=== PATIENT | female | born 1965 ===

== ENCOUNTER 2023-08-04 13:30 | Outpatient (OUT) | payer BC, SELFPAY ==
--- NOTE | 2023-08-04 | XR_ITS ---
[address] [address] Patient Name: PRAMOD BUCKNER MRN: [id number] date: 1965 Sex: F Assigned Patient Location: [facility] Current Patient Location: Accession/Order Number: [id number] Exam Date: 08/04/2023 13:53 Report Date: 08/05/2023 12:05 At the request of: RUI BOLAÑOS Procedure: XR ankle LT min 3V STUDY: XR foot VINCENT min 3V, XR ankle LT min 3V, [id number], [id number] HISTORY: BILATERAL FOOT PAIN COMPARISON: None FINDINGS: Right foot: No acute fracture, dislocation, or suspicious osseous lesion. Severe osteoarthritis of the first metatarsophalangeal joint as well as the second through fifth tarsometatarsal joints. Mild osteoarthritis at the first tarsometatarsal joint. Mild osteoarthritis of the subtalar joint. Medium-sized plantar calcaneal spur. Left foot and ankle: No acute fracture, dislocation, or suspicious osseous lesion. Severe osteoarthritis at the first metatarsophalangeal joint and mild osteoarthritis of the second through fourth tarsometatarsal joints. There is a medium-sized plantar calcaneal spur. Pes planus. No lucent lesion of the talar dome. A single bone screw is present in the talus. IMPRESSION: 1. Bilateral osteoarthritis. 2. Left-sided pes planus. Electronically authenticated by: CASANDRA PARIS Date: 08/05/2023 12:05
--- NOTE | 2023-08-04 | XR_ITS ---
[address] [address] Patient Name: PRAMOD BUCKNER MRN: [id number] date: 1965 Sex: F Assigned Patient Location: [facility] Current Patient Location: Accession/Order Number: [id number] Exam Date: 08/04/2023 13:42 Report Date: 08/05/2023 12:05 At the request of: RUI BOLAÑOS Procedure: XR foot VINCENT min 3V STUDY: XR foot VINCENT min 3V, XR ankle LT min 3V, [id number], [id number] HISTORY: BILATERAL FOOT PAIN COMPARISON: None FINDINGS: Right foot: No acute fracture, dislocation, or suspicious osseous lesion. Severe osteoarthritis of the first metatarsophalangeal joint as well as the second through fifth tarsometatarsal joints. Mild osteoarthritis at the first tarsometatarsal joint. Mild osteoarthritis of the subtalar joint. Medium-sized plantar calcaneal spur. Left foot and ankle: No acute fracture, dislocation, or suspicious osseous lesion. Severe osteoarthritis at the first metatarsophalangeal joint and mild osteoarthritis of the second through fourth tarsometatarsal joints. There is a medium-sized plantar calcaneal spur. Pes planus. No lucent lesion of the talar dome. A single bone screw is present in the talus. IMPRESSION: 1. Bilateral osteoarthritis. 2. Left-sided pes planus. Electronically authenticated by: CASANDRA PARIS Date: 08/05/2023 12:05
--- OUTSIDE RECORDS SUMMARY | 2023-09-14 15:20 | XMS_ITS | CCD ---
Author Name Unknown Address [address] [place] [id number] Organization [facility] Results Test Name Value Interpretation Reference Range Facil ity Interdisciplinary Note - Manas singon 08-05-2023 Interdisciplinary Note - Nursing Patient: PRAMOD BUCKNER Age: 58 years Sex: Female : 1965 Associated Diagnoses: None Author: Maren Burleson Dr. office called for implant information that was placed in patients foot by Dr. Covarrubias. Information was given to Angie Zuniga, from Dr. Biggs Office, Implant was, Implant subtalar, 9MMF from [employer].[id number](f).15:50 pm [facility] Provider Letteron 10-07-2022 Provider Letter (Inserted Image. Chasity ble to display) October 07, 2022 PRAMOD BUCKNER [address] [place] [phone] PRAMOD BUCKNER 1965 To Whom It May Concern, Please excuse the patient above from Jury Duty. 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 Respectfully, Ngoc Jeronimo [facility] Family Medicine [place] [address] [place] [id number] [facility] Summary Purpose Family History No Family History Records Found Advance Directives No Advanced Directives Records Found Additional Source Comments INFORMATION SOURCE (unrecogn ized section and content) DATE CREATED AUTHOR 08/07/2023 [facility] FOR RECORDS PERTAINING TO PATIENTS WHO ARE OR HAVE BEEN ENROLLED IN A CHEMICAL DEPENDENCY/SUBSTANCEABUSE PROGRAM, SOME INFORMATION MAY BE OMITTED. This clinical summary was aggregated from multiple sources. Caution should be exercised in using it in the provision of clinical care. This summary normalizes information from multiple sources, and as a consequence, information in this document may materially change the coding, format and clinical context of patient data. In addition, data may be omitted in some cases. CLINICAL DECISIONS SHOULD BE BASED ON THE PRIMARY CLINICAL RECORDS. [facility] [employer] [facility]. provides no warranty or guarantee of the accuracy or completeness of information in this document.
== END 2023-08-04 13:31 | disposition home or self-care (01) ==
PROVIDERS: Visit Provider Podiatrist Foot & Ankle Surgery
DX: M79.671 Pain in right foot (principal); M79.672 Pain in left foot; M25.572 Pain in left ankle and joints of left foot; M19.072 Primary osteoarthritis, left ankle and foot; M19.071 Primary osteoarthritis, right ankle and foot; M21.42 Flat foot [pes planus] (acquired), left foot; M77.31 Calcaneal spur, right foot
CPT/HCPCS: 73610; 73630

== ENCOUNTER 2023-08-16 07:40 | Outpatient (OUT) | payer BC, SELFPAY ==
--- NOTE | 2023-08-16 07:44 | MR_ITS ---
The [address] [address] Patient Name: PRAMOD BUCKNER MRN: [id number] date: 1965 Sex: F Assigned Patient Location: MRI Current Patient Location: MRI Accession/Order Number: [id number] Exam Date: 08/16/2023 08:05 Report Date: 08/16/2023 09:21 At the request of: RUI BOLAÑOS Procedure: MR ankle LT wo con MR ankle LT wo con, 08/16/2023 8:05 AM EST INDICATION: Tendon Tear, Posterior Tibial Tendon Dysfunction COMPARISON: Prior x-ray of the left ankle dated 08/04/2023 TECHNIQUE: Multiplanar and multisequential MR images of the left ankle were obtained without contrast . FINDINGS: There is a screw along middle talocalcaneus joint causing magnetic susceptibility artifact that decreases the sensitivity of this study. Muscles and tendons: T2 prolongation within the posterior tibialis tendon adjacent to the navicular bone suggesting of focal tendinosis. No high-grade tear is noted. Circumferential fluid along the flexor digitorum longus suggesting of tenosynovitis. The remainder of flexor and extensor tendons and muscles are unremarkable. No abnormality of the peroneal tendons is noted. A tiny longitudinal tear within the distal Achilles tendon is noted, likely chronic. Bone: There is cystic formation involving the calcaneus neck with mild bone marrow edema. There is adjacent to possible venous lomax. No osseus other lesion is noted. Sinus Tarsi: No abnormality of sinus Tarsi is noted. Plantar fascia: The plantar fascia is unremarkable. Ligaments: The deep and superficial portions of deltoid are unremarkable. The lateral ligaments are unremarkable. The visualized portion of Lisfranc ligament is unremarkable. There is normal intra-articular joint effusion. No soft tissue abnormality is noted. MR/MR ankle LT wo con IMPRESSION: Focal tendinosis within the left posterior tibialis tendon adjacent to the navicular bone. No high-grade tear. Tenosynovitis of the left flexor digitorum longus. Small longitudinal tear within the distal Achilles tendon likely chronic. Electronically authenticated by: GARTH MORRIS Date: 08/16/2023 09:21
== END 2023-08-16 07:41 | disposition home or self-care (01) ==
LOC: MRI 07:40
PROVIDERS: PCP Family Medicine; Visit Provider Podiatrist Foot & Ankle Surgery
DX: M76.822 Posterior tibial tendinitis, left leg (principal)
CPT/HCPCS: 73721

== ENCOUNTER 2024-02-29 09:38 | Outpatient (OUT) | payer BC, SELFPAY ==
--- NOTE | 2024-02-29 | XR_ITS ---
The [address] [address] Patient Name: PRAMOD BUCKNER MRN: [id number] date: 1965 Sex: F Assigned Patient Location: Current Patient Location: Accession/Order Number: [id number] Exam Date: 02/29/2024 09:40 Report Date: 03/01/2024 12:23 At the request of: RUI BOLAÑOS Procedure: XR foot LT min 3V PROCEDURE: XR foot LT min 3V, XR ankle LT min 3V HISTORY: LEFT FOOT PAIN COMPARISON: XR foot bilateral 08/04/2023, XR ankle left 08/04/2023 FINDINGS: BONES:Prior spacer placement within the sinus tarsi. Marked degenerative changes of the first metatarsophalangeal joint. Moderate sized calcaneal plantar spur and mild flattening of the plantar arch. No fracture or dislocation. SOFT TISSUES:No visible soft tissue swelling. EFFUSION:None visible. OTHER: Negative. XR/XR foot LT min 3V IMPRESSION: 1. Stable surgical changes without evidence of hardware failure or change in alignment. 2. Stable degenerative changes. 3. No appreciable acute abnormality. Electronically authenticated by: JANEE VALDES Date: 03/01/2024 12:23
--- NOTE | 2024-02-29 | XR_ITS ---
The [address] [address] Patient Name: PRAMOD BUCKNER MRN: [id number] date: 1965 Sex: F Assigned Patient Location: Current Patient Location: Accession/Order Number: [id number] Exam Date: 02/29/2024 09:40 Report Date: 03/01/2024 12:23 At the request of: RUI BOLAÑOS Procedure: XR ankle LT min 3V PROCEDURE: XR foot LT min 3V, XR ankle LT min 3V HISTORY: LEFT FOOT PAIN COMPARISON: XR foot bilateral 08/04/2023, XR ankle left 08/04/2023 FINDINGS: BONES:Prior spacer placement within the sinus tarsi. Marked degenerative changes of the first metatarsophalangeal joint. Moderate sized calcaneal plantar spur and mild flattening of the plantar arch. No fracture or dislocation. SOFT TISSUES:No visible soft tissue swelling. EFFUSION:None visible. OTHER: Negative. XR/XR ankle LT min 3V IMPRESSION: 1. Stable surgical changes without evidence of hardware failure or change in alignment. 2. Stable degenerative changes. 3. No appreciable acute abnormality. Electronically authenticated by: JANEE VALDES Date: 03/01/2024 12:23
--- OUTSIDE RECORDS SUMMARY | 2024-02-29 09:51 | XMS_ITS | CCD ---
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 Respectfully, Ngoc Jeronimo [facility] Medicine [place] [address] [address] [facility] Summary Purpose Family History No Family History Records Found Advance Directives No Advanced Directives Records Found Additional Source Comments INFORMATION SOURCE (unrecogn ized section and content) DATE CREATED AUTHOR 08/07/2023 [facility] FOR RECORDS PERTAINING TO PATIENTS WHO ARE [...] BE BASED ON THE PRIMARY CLINICAL RECORDS. [facility] [employer] [facility]. provides no warranty or guarantee of the accuracy or completeness of information in this document.
== END 2024-02-29 09:39 | disposition home or self-care (01) ==
LOC: EC 09:39
PROVIDERS: PCP Family Medicine; Visit Provider Podiatrist Foot & Ankle Surgery
DX: M25.572 Pain in left ankle and joints of left foot (principal); M79.672 Pain in left foot; Z98.890 Other specified postprocedural states
CPT/HCPCS: 73610; 73630

== ENCOUNTER 2024-10-03 14:35 | Outpatient (OUT) | payer OTHER, SELFPAY ==
--- NOTE | 2024-10-03 | XR_ITS ---
The [place] [id number] Patient Name: PRAMOD BUCKNER MRN: [id number] date: 1965 Sex: F Assigned Patient Location: Current Patient Location: Accession/Order Number: [id number] Exam Date: 10/03/2024 14:40 Report Date: 10/05/2024 07:24 At the request of: RUI BOLAÑOS Procedure: XR foot LT min 3V PROCEDURE: XR ankle LT min 3V, XR foot LT min 3V COMPARISON: 02/29/2024 HISTORY: LEFT ANKLE PAIN FINDINGS: BONES:No acute fracture or dislocation. Pes planus. Spacer in the sinus Tarsi. Moderate degenerative changes with joint space narrowing and marginal osteophyte formation. Moderate plantar enthesopathic spurring of the calcaneus SOFT TISSUES:Negative. No visible soft tissue swelling. EFFUSION:None visible. OTHER: Negative. XR/XR foot LT min 3V IMPRESSION: Stable degenerative and postsurgical changes Electronically authenticated by: JT WATSON Date: 10/05/2024 07:24
--- NOTE | 2024-10-03 | XR_ITS ---
The [place] [id number] Patient Name: PRAMOD BUCKNER MRN: [id number] date: 1965 Sex: F Assigned Patient Location: Current Patient Location: Accession/Order Number: [id number] Exam Date: 10/03/2024 14:40 Report Date: 10/05/2024 07:24 At the request of: RUI BOLAÑOS Procedure: XR ankle LT min 3V PROCEDURE: XR ankle LT min 3V, XR foot LT min 3V COMPARISON: 02/29/2024 HISTORY: LEFT ANKLE PAIN FINDINGS: BONES:No acute fracture or dislocation. Pes planus. Spacer in the sinus Tarsi. Moderate degenerative changes with joint space narrowing and marginal osteophyte formation. Moderate plantar enthesopathic spurring of the calcaneus SOFT TISSUES:Negative. No visible soft tissue swelling. EFFUSION:None visible. OTHER: Negative. XR/XR ankle LT min 3V IMPRESSION: Stable degenerative and postsurgical changes Electronically authenticated by: JT WATSON Date: 10/05/2024 07:24
== END 2024-10-03 14:36 | disposition home or self-care (01) ==
LOC: EC 14:39
PROVIDERS: PCP Family Medicine; Visit Provider Podiatrist Foot & Ankle Surgery
DX: M25.572 Pain in left ankle and joints of left foot (principal); M79.672 Pain in left foot; M21.42 Flat foot [pes planus] (acquired), left foot; M77.32 Calcaneal spur, left foot; Z98.890 Other specified postprocedural states
CPT/HCPCS: 73610; 73630